=== PATIENT | female | born 1985 | race Caucasian/White ===

== ENCOUNTER 2023-04-29 23:35 | Emergency (ER) | payer MEDICAID ==
[~2023-04-29] VITALS: Ht 154.9 cm; Wt 113.4 kg
[2023-04-29 23:49] VITALS: BP_SYST 128
[2023-04-30] MEDS ORDERED: IBUPROFEN 800 MG TABLET PO ONE
[2023-04-30] MEDS ORDERED: IBUP-1969 PO (00:01)
[2023-04-30 00:14] VITALS: BP_SYST 120
== END 2023-04-30 00:14 | disposition home or self-care (01) ==
LOC: SED 23:35
DX: M72.2 Plantar fascial fibromatosis (principal); M79.671 Pain in right foot; M79.672 Pain in left foot; Z79.899 Other long term (current) drug therapy
CPT/HCPCS: 99282

== ENCOUNTER 2024-02-19 22:15 | Emergency (ER) | payer MEDICAID, OTHER ==
[~2024-02-19] VITALS: Ht 154.9 cm; Wt 93.0 kg
[~2024-02-19 22:15] MED LIST: IBUP-1969 PO
[2024-02-19 22:41] VITALS: BP_SYST 132; PULSE 82; RESP 20; TEMP 97.1; O2SAT 96
[2024-02-20 00:14] LABS: BILIRUBIN,URINE NEGATIVE (NEGATIVE); BLOOD, URINE NEGATIVE (NEGATIVE); COLOR,URINE YELLOW (YELLOW); GLUCOSE,URINE NEGATIVE (NEGATIVE); KETONES,URINE NEGATIVE (NEGATIVE); NITRITE, URINE NEGATIVE (NEGATIVE); PROTEIN URINE NEGATIVE (NEGATIVE); UROBILINOGEN,URINE 0.2 (0.2-1.0)
[2024-02-20 00:48] LABS: CLARITY/URINE SLIGHTLY CLOUDY (CLEAR); LEUKOCYTE ESTERASE ,URINE 1+ (NEGATIVE)
[2024-02-20 00:49] LABS: BACTERIA,URINE FEW /HPF (None Seen); RBC,URINE 0-3 /HPF (0-3)
[2024-02-20] MEDS ORDERED: cefTRIAXone 500 MG in LIDOCAINE 1%, 20 ML MDV 1 ML IM ONE (04:30)
[2024-02-20] MEDS ORDERED: METR-154 PO (04:35)
[2024-02-20] MEDS: FLUCONAZOLE 200 MG TABLET (DIFLUCAN) PO ONE (04:41)
[2024-02-20] MEDS: metroNIDAZOLE 500 MG TABLET PO ONE (04:41)
[2024-02-20] MEDS: AZITHROMYCIN 250 MG TABLET PO ONE (04:42)
[2024-02-20] MEDS: cefTRIAXone 500 MG in LIDOCAINE 1%, 20 ML MDV 1 ML IM ONE (04:42)
[2024-02-20] MEDS ORDERED: ACETAMINOPHEN 500 MG TABLET PO ONE (05:15)
[2024-02-20] MEDS: KETOROLAC TROMETHAMINE 30 MG VIAL IM ONE (05:21)
[2024-02-20 05:28] VITALS: BP_SYST 124; PULSE 72; RESP 20; TEMP 97.1; O2SAT 94
== END 2024-02-20 05:28 | disposition home or self-care (01) ==
LOC: SED 22:15
DX: R10.9 Unspecified abdominal pain (principal); Z79.899 Other long term (current) drug therapy
CPT/HCPCS: 99284; 81001; 87086; 87186; 87210; 36415; 81025; 87491; 81000; 96372; 81015; J0696; J1885; Q0144